=== PATIENT | female | born 1940 | race Caucasian/White ===

== ENCOUNTER 2016-09-28 12:28 | Inpatient (IN) | payer OTHER, MEDICAID ==
[2016-09-28] MEDS ORDERED: TUSSIONEX PENNKINETIC SUSP PO PRN (13:11)
[2016-09-28] MEDS ORDERED: ROBITUSSIN AC PO PRN (13:13)
--- NOTE | 2016-09-28 13:34 | DR.H&P ---
H&P - History & Physical for Day of: H&P Date: 09/28/16 - Chief Complaint Chief Complaint: SOB, CP, COUGH AND WHEEZING - Allergies Allergies/Adverse Reactions: Allergies Allergy/AdvReac Type Severity Reaction Status Date / Time Hydrocodone [From Vicodin] Allergy Unknown Verified 07/12/16 14:57 Meperidine [From Demerol HCl] Allergy Unknown Verified 07/12/16 14:57 Morphine Allergy Unknown Verified 07/12/16 14:57 Penicillins Allergy Unknown Verified 07/12/16 14:57 Sulfa Drugs Allergy Unknown Verified 07/12/16 14:57 - History of Present Illness History of Present Illness: PT IS 76 WF DIRECT ADMIT FROM DR LARES OFFICE AFTER PRESENTING WITH CO SOB, CP, PALPITATIONS, COUGH AND WHEEZING. PT HAS BEEN TREATED FOR 4 DAYS OUTPT FOR AB WITH IM ROCEPHIN AND STEROID INJECTIONS. PT HAS USED JET NEBS QID AND PO LEVAQUIN WITHOUT IMPROVEMENT. PT PRESENTED TODAY WITH INCREASE WEAKNESS AND CHEST WALL PAIN AND PALPITATIONS. PT HAS PMH OF CAD, CHF, COPD, OA, HTN. PLAN TO ADMIT TO STEP DOWN UNIT, EKG ON ADMISSION AND CARDIAC MONITORING. PNEUMONIA PATHWAY WITH BLOOD AND SPUTUM CULTURES, IV ATBX THERAPY AND IV STEROIDS - Past Medical History Past Medical History: Angina, CHF, COPD, Coronary Artery Disease, GERD, Hypertension - Past Surgical History Surgical History: Angioplasty/Stents, Appendectomy, Cholecystectomy, Hysterectomy, Ortho Surgery, Thyroidectomy - Family History Family Medical History: Diabetes Mellitus, Cancer, CO, Coronary Artery Disease, Sudden Cardiac , Hypertension - Social History Does patient currently use any type of tobacco product: No Have you used tobacco products in the last 12 months: No Type of Tobacco Use: None Does any household member use tobacco: No Alcohol Use: None Drug Use: None - Review of Systems Constitutional: Fever, Chills, Weakness Eyes: No Symptoms Reported ENT: No Symptoms Reported Respiratory: Cough, Shortness of Breath, Wheezing Cardiovascular: Palpitations Gastrointestinal: No Symptoms Reported Genitourinary: No Symptoms Reported Musculoskeletal: No Symptoms Reported Skin: No Symptoms Reported Neurological: No Symptoms Reported - Physical Exam Vital Signs: Blood Pressure [Right Arm] 169/69 Blood Pressure [Left Arm] 141/93 Blood Pressure 141/93 Oriented: Normal Eyes: Normal Ear: Normal, Left Throat: Normal Respiratory: Wheezes Throughout, RLL Diminished, LLL Diminished Cardiovascular: Tachycardia : Normal Auscultation: Bowel Sounds: Normal Palpation: Normal Tenderness: Normal Skin: Normal Musculoskeletal: Back:Thoracic, Back:Lumbar, Tender (TENDERNESS TO BILATERAL RIBS ) Affect: Anxious Speech Pattern: Clear, Appropriate - Assessment/Plan (1) COPD exacerbation Status: Acute Plan: WITH ACUTE BRONCHITIS, PLAN TO START PNEUMONIA PATHWAY. IV LEVAQUIN, IV SOLU MEDROL. IV HYDRATION, BLOOD AND SPUTUM CULTURES. CXR ON ADMISSION, RESP THEARPY (2) Respiratory distress Status: Acute Plan: RESP THERAPY, O2 (3) CAD (coronary artery disease) Qualifiers: Coronary Disease-Associated Artery/Lesion type: C [place] vs. transplanted heart: N Associated angina: A Status: Acute Plan: CONTINUE HOME MEDS, BB AND LIPID CONTROL (4) CHF (congestive heart failure) Qualifiers: Congestive heart failure type: C Congestive heart failure chronicity: C Status: Acute Plan: BB, LASIX, CXR. CARDIAC MONITORING (5) Hypertension Qualifiers: Hypertension type: H Status: Acute Plan: RESUME HOME MEDS (6) GERD (gastroesophageal reflux disease) Qualifiers: Esophagitis presence: E Status: Chronic
[2016-09-28] MEDS ORDERED: LEVAQUIN PREMIX IV 750 MG 750 MG/150 ML BAG IV SCH (14:00)
--- NOTE | 2016-09-28 14:18 | RAD ---
HISTORY: Pneumonia, shortness of breath Study: Two view chest Comparison: 08/19/2016 Findings: There is surgical clips again noted in the superior right chest. The lungs are clear without consoli dation, effusion or pneumothorax. Normal-sized heart. Prominent calcifications of the thoracic aorta noted. The soft tissues are unremarkable. IMPRESSION: 1. No acute cardiopulmonary abnormality. Reported By:
[2016-09-28] MEDS ORDERED: NS 1/2 1000 ML IV 1,000 ML IV ONE (14:33)
[2016-09-28] MEDS: NS 1/2 1000 ML IV 1,000 ML IV SCH (14:36)
[2016-09-28] MEDS: SOLU-MEDROL 125 MG VIAL IVP SCH ×2 (14:43→21:19)
[2016-09-28 14:46] LABS: BASOPHILS # (AUTO) 0.1 X10^3/uL (0.0-0.1); BASOPHILS % (AUTO) 0.4 % (0.2-1.0); HEMATOCRIT 43.8 % (36.0-47.0); LYMPHOCYTES # (AUTO) 2.1 X10^3/uL (1.3-2.9); MEAN CORPUSCULAR HEMOGLOBIN 30.2 pg (27.0-34.0); MEAN CORPUSCULAR HGB CONC 34.3 g/dL (33.0-35.0); MEAN PLATELET VOLUME 8.4 fL (7.4-11.0); MONOCYTES # (AUTO) 1.7 x10^3/uL (0.3-0.8); MONOCYTES % (AUTO) 9.6 % (0.0-13.0); NEUTROPHILS # (AUTO) 13.8 x10^3/uL (2.2-4.8); PLATELET COUNT 503 X10^3/uL (150.0-450.0); RED BLOOD COUNT 4.98 X10^6/uL (3.5-5.4); RED CELL DISTRIBUTION WIDTH 14.3 % (11.6-16.5); WHITE BLOOD COUNT 17.8 X10^3/uL (3.6-10.0)
[2016-09-28 14:59] LABS: ALANINE AMINOTRANSFERASE 34 Units/L (12-78); ALKALINE PHOSPHATASE 83 Units/L (46-116); ASPARTATE AMINO TRANSFERASE 23 Units/L (15-37); BLOOD UREA NITROGEN 32 mg/dL (7-18); CALCIUM 8.9 mg/dL (8.5-10.1); CARBON DIOXIDE 27.6 mmol/L (21-32); CHLORIDE 104 mmol/L (98-107); CREATININE 1.11 mg/dL (0.55-1.02); GLUCOSE 100 mg/dL (65-99); SODIUM 144 mmol/L (136-145); TOTAL PROTEIN 7.9 g/dL (6.4-8.2); eGFR BLACK RACES > 60 (>60); eGFR NON BLACK RACES 51 (>60)
[2016-09-28 15:08] VITALS: BMI 30.2
[2016-09-28] MEDS: XOPENEX 1.25 MG/3 ML NEB SCH ×2 (17:06→20:01)
[2016-09-28] MEDS: ROBITUSSIN DM PO SCH ×2 (17:52→20:44)
[2016-09-29] MEDS ORDERED: NS 1/2 1000 ML IV 1,000 ML IV ONE ×2 (05:40→21:12)
[2016-09-29] MEDS: NS 1/2 1000 ML IV 1,000 ML IV SCH ×2 (06:03→21:17)
[2016-09-29 06:04] LABS: ALANINE AMINOTRANSFERASE 31 Units/L (12-78); ALBUMIN 3.3 g/dL (3.4-5.0); ALKALINE PHOSPHATASE 68 Units/L (46-116); ASPARTATE AMINO TRANSFERASE 14 Units/L (15-37); BLOOD UREA NITROGEN 28 mg/dL (7-18); CALCIUM 8.2 mg/dL (8.5-10.1); CARBON DIOXIDE 25.5 mmol/L (21-32); CHLORIDE 104 mmol/L (98-107); COR CA(FOR HYPOALB) 8.8 mg/dL (8.5-10.1); COR NA(FOR HYPERGLY) 145 mmol/L (136-145); CREATININE 1.04 mg/dL (0.55-1.02); GLUCOSE 170 mg/dL (65-99); SODIUM 143 mmol/L (136-145); TOTAL PROTEIN 6.9 g/dL (6.4-8.2); eGFR BLACK RACES > 60 (>60); eGFR NON BLACK RACES 55 (>60)
[2016-09-29 06:11] LABS: BASOPHILS # (AUTO) 0.1 X10^3/uL (0.0-0.1); BASOPHILS % (AUTO) 0.6 % (0.2-1.0); HEMOGLOBIN 13.9 g/dL (12.0-16.0); LYMPHOCYTES # (AUTO) 0.9 X10^3/uL (1.3-2.9); LYMPHOCYTES % (AUTO) 9.2 % (21.0-51.0); MEAN CORPUSCULAR HEMOGLOBIN 29.9 pg (27.0-34.0); MEAN PLATELET VOLUME 8.5 fL (7.4-11.0); MONOCYTES # (AUTO) 0.2 x10^3/uL (0.3-0.8); MONOCYTES % (AUTO) 1.7 % (0.0-13.0); NEUTROPHILS # (AUTO) 8.3 x10^3/uL (2.2-4.8); NEUTROPHILS % (AUTO) 88.5 % (42.0-75.0); PLATELET COUNT 382 X10^3/uL (150.0-450.0); RED BLOOD COUNT 4.65 X10^6/uL (3.5-5.4); RED CELL DISTRIBUTION WIDTH 13.9 % (11.6-16.5); WHITE BLOOD COUNT 9.4 X10^3/uL (3.6-10.0)
[2016-09-29] MEDS: ROBITUSSIN DM PO SCH ×4 (09:21→21:17)
[2016-09-29] MEDS: SOLU-MEDROL 125 MG VIAL IVP SCH (09:22)
[2016-09-29] MEDS: NORVASC TAB 10 MG PO SCH (09:22)
[2016-09-29] MEDS: PROTONIX TAB 40 MG PO SCH (09:22)
[2016-09-29] MEDS: LASIX PO SCH (09:22)
[2016-09-29] MEDS: LOPRESSOR TAB 50 MG PO SCH ×2 (09:22→21:17)
[2016-09-29] MEDS: SYNTHROID 75 mcg TAB PO SCH (09:22)
[2016-09-29] MEDS: SYMBICORT INH 80/4.5 mcg IN SCH (09:32)
[2016-09-29] MEDS: XOPENEX 1.25 MG/3 ML NEB SCH ×4 (09:32→21:13)
[2016-09-29] MEDS: LIPITOR TAB 20 MG PO SCH (21:17)
[2016-09-30 06:25] LABS: BASOPHILS % (AUTO) 0.2 % (0.2-1.0); HEMATOCRIT 39.4 % (36.0-47.0); HEMOGLOBIN 13.4 g/dL (12.0-16.0); LYMPHOCYTES % (AUTO) 12.1 % (21.0-51.0); MEAN CORPUSCULAR HGB CONC 34.1 g/dL (33.0-35.0); MEAN CORPUSCULAR VOLUME 87.8 fL (80.0-100.0); MEAN PLATELET VOLUME 8.3 fL (7.4-11.0); MONOCYTES # (AUTO) 1.3 x10^3/uL (0.3-0.8); MONOCYTES % (AUTO) 7.7 % (0.0-13.0); NEUTROPHILS # (AUTO) 13.4 x10^3/uL (2.2-4.8); PLATELET COUNT 369 X10^3/uL (150.0-450.0); RED BLOOD COUNT 4.49 X10^6/uL (3.5-5.4); RED CELL DISTRIBUTION WIDTH 13.8 % (11.6-16.5); WHITE BLOOD COUNT 16.7 X10^3/uL (3.6-10.0)
[2016-09-30 06:32] LABS: ALANINE AMINOTRANSFERASE 28 Units/L (12-78); ALBUMIN 2.9 g/dL (3.4-5.0); ALKALINE PHOSPHATASE 61 Units/L (46-116); ASPARTATE AMINO TRANSFERASE 18 Units/L (15-37); BLOOD UREA NITROGEN 24 mg/dL (7-18); CALCIUM 8.1 mg/dL (8.5-10.1); CARBON DIOXIDE 26.9 mmol/L (21-32); CHLORIDE 107 mmol/L (98-107); COR NA(FOR HYPERGLY) 144 mmol/L (136-145); GLUCOSE 119 mg/dL (65-99); SODIUM 144 mmol/L (136-145); TOTAL PROTEIN 6.1 g/dL (6.4-8.2); eGFR BLACK RACES > 60 (>60); eGFR NON BLACK RACES > 60 (>60)
[2016-09-30] MEDS: ROBITUSSIN DM PO SCH ×4 (08:46→20:08)
[2016-09-30] MEDS: LASIX PO SCH (08:50)
[2016-09-30] MEDS: SYNTHROID 75 mcg TAB PO SCH (08:50)
[2016-09-30] MEDS: PROTONIX TAB 40 MG PO SCH (08:50)
[2016-09-30] MEDS: LOPRESSOR TAB 50 MG PO SCH ×2 (08:50→20:08)
[2016-09-30] MEDS: NORVASC TAB 10 MG PO SCH (08:50)
[2016-09-30] MEDS: NS 1/2 1000 ML IV 1,000 ML IV SCH (08:52)
[2016-09-30] MEDS ORDERED: LEVAQUIN PREMIX IV 750 MG 750 MG/150 ML BAG IV SCH (09:00)
[2016-09-30] MEDS: XOPENEX 1.25 MG/3 ML NEB SCH ×4 (09:36→21:18)
[2016-09-30] MEDS: SYMBICORT INH 80/4.5 mcg IN SCH (09:37)
--- NOTE | 2016-09-30 13:53 | RAD ---
HISTORY: Shortness of breath Study: PA and lateral chest Comparison: September 28 a Findings: The trachea is midline. The cardiac silhouette is unremarkable. The lungs are clear without focal infiltrate or effusion. The bony thorax is unremarkable. Surgical clips overlying the apex of the right thorax. IMPRESSION: 1. No acute cardiopulmonary disease. Reported By:
[2016-09-30] MEDS: LIPITOR TAB 20 MG PO SCH (20:08)
[2016-10-01] MEDS: NS 1/2 1000 ML IV 1,000 ML IV SCH ×2 (00:21→12:26)
[2016-10-01 06:28] LABS: BLOOD UREA NITROGEN 21 mg/dL (7-18); CALCIUM 8.2 mg/dL (8.5-10.1); CARBON DIOXIDE 30.5 mmol/L (21-32); CHLORIDE 104 mmol/L (98-107); CREATININE 0.94 mg/dL (0.55-1.02); GLUCOSE 106 mg/dL (65-99); SODIUM 143 mmol/L (136-145); eGFR BLACK RACES > 60 (>60); eGFR NON BLACK RACES > 60 (>60)
[2016-10-01 07:19] LABS: BASOPHILS % (AUTO) 0.2 % (0.2-1.0); EOSINOPHILS # (AUTO) 0.1 x10^3/uL (0.0-0.2); EOSINOPHILS % (AUTO) 0.5 % (0.9-2.9); HEMATOCRIT 45.3 % (36.0-47.0); HEMOGLOBIN 15.1 g/dL (12.0-16.0); LYMPHOCYTES # (AUTO) 2.1 X10^3/uL (1.3-2.9); LYMPHOCYTES % (AUTO) 13.8 % (21.0-51.0); MEAN CORPUSCULAR HGB CONC 33.2 g/dL (33.0-35.0); MEAN CORPUSCULAR VOLUME 90.3 fL (80.0-100.0); MEAN PLATELET VOLUME 8.1 fL (7.4-11.0); MONOCYTES # (AUTO) 1.4 x10^3/uL (0.3-0.8); MONOCYTES % (AUTO) 8.9 % (0.0-13.0); NEUTROPHILS # (AUTO) 11.7 x10^3/uL (2.2-4.8); NEUTROPHILS % (AUTO) 76.6 % (42.0-75.0); PLATELET COUNT 348 X10^3/uL (150.0-450.0); RED BLOOD COUNT 5.02 X10^6/uL (3.5-5.4); WHITE BLOOD COUNT 15.3 X10^3/uL (3.6-10.0)
[2016-10-01 08:21] LABS: BAND NEUTROPHILS % 1 % (0-10)
[2016-10-01 08:22] LABS: PLATELET MORPHOLOGY COMMENT NORMAL (NORMAL)
[2016-10-01] MEDS: XOPENEX 1.25 MG/3 ML NEB SCH ×3 (08:35→16:02)
[2016-10-01] MEDS: SYMBICORT INH 80/4.5 mcg IN SCH (08:36)
[2016-10-01] MEDS: NORVASC TAB 10 MG PO SCH (08:56)
[2016-10-01] MEDS: LASIX PO SCH (08:57)
[2016-10-01] MEDS: SYNTHROID 75 mcg TAB PO SCH (08:57)
[2016-10-01] MEDS: PROTONIX TAB 40 MG PO SCH (08:57)
[2016-10-01] MEDS: LOPRESSOR TAB 50 MG PO SCH (08:57)
[2016-10-01] MEDS: ROBITUSSIN DM PO SCH ×2 (10:39→13:24)
[2016-10-01] MEDS ORDERED: K-RIDER 10 MEQ/NS 100 ML 10 MEQ/100 ML BAG IV PRN (11:11)
[2016-10-01] MEDS ORDERED: POTASSIUM CHLORIDE LIQ 20 MEQ UDC PO PRN (11:11)
[2016-10-01] MEDS ORDERED: K-DUR TAB 20 MEQ PO PRN (11:11)
[2016-10-01] MEDS ORDERED: K-LYTE EFFERVESCENT PO PRN (11:11)
[2016-10-01 16:02] VITALS: BP 157/66
== END 2016-10-01 16:20 | disposition home or self-care (01) | DRG 192 ==
LOC: ICU 12:28 → UNDOADMIN 12:28 → ICU 13:30
PROVIDERS: ADMIT Internal Medicine; ATTEND Internal Medicine
DX: J44.1 Chronic obstructive pulmonary disease with (acute) exacerbation (principal); J20.8 Acute bronchitis due to other specified organisms; I50.9 Heart failure, unspecified; R06.02 Shortness of breath; R07.89 Other chest pain; I10 Essential (primary) hypertension; K21.9 Gastro-esophageal reflux disease without esophagitis; R06.00 Dyspnea, unspecified
CPT/HCPCS: 36415; 71020; 80048; 80053; 84132; 85025; 87040; 87070; 87205; 93005; 93010; 94640; A4222; J1956; J2930

== ENCOUNTER → 2016-10-04 | Outpatient (CLI) | payer OTHER, MEDICAID ==
[2016-10-01 16:02] VITALS: BP 157/66
--- NOTE | 2016-10-04 19:25 | RAD ---
History: Neck pain. Study: 6 views of the cervical spine Findings: There is normal alignment with severe osteophytes diffusely about the facet joints. There is heavy common carotid bifurcation calcification. There are surgical clips at the base of the right neck. There are mild osteophytes in the lower cervical disc spaces. There is no significant uncover tebral joint spurring. Impression: 1. Severe diffuse facet joint osteoarthritis 2. Mild lower cervical degenerative disc disease Reported By:
== END ==
LOC: RAD 17:57
PROVIDERS: ATTEND Nurse Practitioner Family
DX: M54.2 Cervicalgia (principal)
CPT/HCPCS: 72050

== ENCOUNTER → 2016-10-09 | Outpatient (CLI) | payer OTHER, MEDICAID ==
[2016-10-01 16:02] VITALS: BP 157/66
--- NOTE | 2016-10-09 18:16 | US ---
Indication: Arm pain . Exam: Soft tissue ultrasound of the right arm. Technique: Transverse and longitudinal grayscale and color Doppler images were obtained of the soft tissues of the right wrist. Findings: The visualized soft tissues around the wrist appear unremarkable with no cystic or solid l esion seen and no abnormal fluid collections identified. Impression: No sonographic abnormality seen. Reported By:
== END ==
LOC: RAD 11:36
PROVIDERS: ATTEND Nurse Practitioner Family
DX: M79.601 Pain in right arm (principal)
CPT/HCPCS: 76881

== ENCOUNTER → 2016-11-01 | Outpatient (CLI) | payer OTHER, MEDICAID ==
[2016-11-01 14:45] LABS: BASOPHILS # (AUTO) 0.1 X10^3/uL (0.0-0.1); BASOPHILS % (AUTO) 0.6 % (0.2-1.0); EOSINOPHILS # (AUTO) 0.1 x10^3/uL (0.0-0.2); HEMATOCRIT 43.4 % (36.0-47.0); HEMOGLOBIN 14.7 g/dL (12.0-16.0); LYMPHOCYTES # (AUTO) 2.4 X10^3/uL (1.3-2.9); LYMPHOCYTES % (AUTO) 24.4 % (21.0-51.0); MEAN CORPUSCULAR HEMOGLOBIN 30.3 pg (27.0-34.0); MEAN CORPUSCULAR VOLUME 89.4 fL (80.0-100.0); MEAN PLATELET VOLUME 8.2 fL (7.4-11.0); MONOCYTES # (AUTO) 0.7 x10^3/uL (0.3-0.8); MONOCYTES % (AUTO) 7.1 % (0.0-13.0); NEUTROPHILS # (AUTO) 6.5 x10^3/uL (2.2-4.8); NEUTROPHILS % (AUTO) 66.9 % (42.0-75.0); PLATELET COUNT 388 X10^3/uL (150.0-450.0); RED BLOOD COUNT 4.86 X10^6/uL (3.5-5.4); RED CELL DISTRIBUTION WIDTH 14.9 % (11.6-16.5); WHITE BLOOD COUNT 9.7 X10^3/uL (3.6-10.0)
[2016-11-01 15:00] LABS: BLOOD UREA NITROGEN 21 mg/dL (7-18); CALCIUM 9.1 mg/dL (8.5-10.1); CARBON DIOXIDE 27.2 mmol/L (21-32); CHLORIDE 108 mmol/L (98-107); CHOL/HDL RATIO 3.3 (0.0-5.0); CHOLESTEROL 195 mg/dL (0-200); CREATININE 1.07 mg/dL (0.55-1.02); GLUCOSE 99 mg/dL (65-99); HDL CHOLESTEROL 59 mg/dL (40-60); SODIUM 145 mmol/L (136-145); TRIGLYCERIDES 65 mg/dL (0-150); eGFR BLACK RACES > 60 (>60); eGFR NON BLACK RACES 53 (>60)
[2016-11-01 15:11] LABS: ALBUMIN 3.7 g/dL (3.4-5.0); BILIRUBIN,DIRECT 0.1 mg/dL (0-0.2); TOTAL PROTEIN 7.5 g/dL (6.4-8.2)
== END ==
LOC: LAB 13:37
PROVIDERS: ATTEND Physician Assistant
DX: I73.89 Other specified peripheral vascular diseases (principal); E78.4 Other hyperlipidemia; R07.89 Other chest pain
CPT/HCPCS: 36415; 80048; 80061; 80076; 85025

== ENCOUNTER → 2017-02-13 | Outpatient (CLI) | payer OTHER, MEDICAID ==
[2017-02-13 15:50] LABS: BASOPHILS # (AUTO) 0.2 X10^3/uL (0.0-0.1); BASOPHILS % (AUTO) 1.5 % (0.2-1.0); EOSINOPHILS # (AUTO) 0.3 x10^3/uL (0.0-0.2); EOSINOPHILS % (AUTO) 2.9 % (0.9-2.9); HEMATOCRIT 41.8 % (36.0-47.0); HEMOGLOBIN 14.5 g/dL (12.0-16.0); LYMPHOCYTES # (AUTO) 2.3 X10^3/uL (1.3-2.9); LYMPHOCYTES % (AUTO) 22.1 % (21.0-51.0); MEAN CORPUSCULAR HGB CONC 34.6 g/dL (33.0-35.0); MEAN CORPUSCULAR VOLUME 89.4 fL (80.0-100.0); MEAN PLATELET VOLUME 7.9 fL (7.4-11.0); MONOCYTES # (AUTO) 0.7 x10^3/uL (0.3-0.8); MONOCYTES % (AUTO) 6.6 % (0.0-13.0); NEUTROPHILS # (AUTO) 6.9 x10^3/uL (2.2-4.8); NEUTROPHILS % (AUTO) 66.9 % (42.0-75.0); PLATELET COUNT 409 X10^3/uL (150.0-450.0); RED BLOOD COUNT 4.67 X10^6/uL (3.5-5.4); RED CELL DISTRIBUTION WIDTH 13.4 % (11.6-16.5); WHITE BLOOD COUNT 10.3 X10^3/uL (3.6-10.0)
[2017-02-13 16:04] LABS: BLOOD UREA NITROGEN 18 mg/dL (7-18); CALCIUM 8.9 mg/dL (8.5-10.1); CARBON DIOXIDE 30.6 mmol/L (21-32); CHLORIDE 102 mmol/L (98-107); CREATININE 1.13 mg/dL (0.55-1.02); GLUCOSE 96 mg/dL (65-99); SODIUM 141 mmol/L (136-145); eGFR BLACK RACES > 60 (>60); eGFR NON BLACK RACES 50 (>60)
== END ==
LOC: LAB 15:29
DX: I25.118 Atherosclerotic heart disease of native coronary artery with other forms of angina pectoris (principal); I70.3 Atherosclerosis of unspecified type of bypass graft(s) of the extremities; I10 Essential (primary) hypertension
CPT/HCPCS: 36415; 80048; 85025; 85610